=== PATIENT | female | born 1995 | race Hispanic/Latino ===

== ENCOUNTER 2022-04-23 11:25 | Emergency (ER) | payer SELFPAY ==
[2022-04-23 11:41] VITALS: BP 136/66; PULSE 66; RESP 16; TEMP 37.1; O2SAT 99
--- NOTE | 2022-04-23 12:16 | ED.GENADULT ---
HPI - General Adult General Chief complaint: Unspecified Stated complaint: pain in right breast Time Seen by Provider: 04/23/22 12:02 History of Present Illness HPI narrative: 26-year-old female without any past medical history presented with right breast pain. Per patient for the last 3 days she has been having right breast pain and redness. Yesterday she noted that redness opened up and started draining purulent discharge. She was seen by her primary care provider reported that she should be seen in the emergency department. She denied fevers, chills, chest pain, shortness of breath nausea vomiting, abdominal pain, diarrhea. Denied past medical history, past surgical history, allergies, smoking, drinking, or recreational drugs. Related Data Allergies Allergy/AdvReac Type Severity Reaction Status Date / Time No Known Allergies Allergy Uncoded 02/09/19 14:38 Review of Systems Review of Systems: Refer to HPI Exam Narrative: APPEARANCE: Alert, calm and cooperative, no acute distress, phonating, sitting comfortably during visit HEAD: atraumatic EYES: Pupils equal round an reactive to light, extra ocular movements intact, no conjunctival injection NOSE: Normal no drainage NECK: Supple, without meningismus RESPIRATORY: Lungs clear to auscultation bilaterally, no wheezes/rales/rhonchi, breathing comfortably CARDIOVASCULAR: Regular rate and rhythm, no visible jugular venous distension ABDOMINAL: Soft, nontender, nondistended, no guarding, no rebound/peritoneal signs, no costovertebral tenderness to palpation BACK: no midline tenderness to palpation, no step offs EXTREMITIES: No edema, palpable peripheral pulses, warm, well perfused, no tenderness to bilateral calves. BREAST: Right breast with 2 cm ulceration, minimal discharge draining, surrounding erythema, no fluctuance, no induration NEURO: Alert, moving all extremities symmetrically SKIN:: Warm, dry. Normal color PSYCHIATRIC: Normal affect/mood Junior Accountant: JERARDO Reynosoole Course Vital Signs Vital signs: Vital Signs Temperature 98.7 F 04/23/22 11:41 Pulse Rate 66 04/23/22 11:41 Respiratory Rate 16 04/23/22 11:41 Blood Pressure 136/66 04/23/22 11:41 Pulse Oximetry 99 04/23/22 11:41 Oxygen Delivery Room Air 04/23/22 11:41 Temperature 98.7 F 04/23/22 11:41 Pulse Rate 66 04/23/22 11:41 Respiratory Rate 16 04/23/22 11:41 Blood Pressure 136/66 04/23/22 11:41 Pulse Oximetry 99 04/23/22 11:41 Oxygen Delivery Room Air 04/23/22 11:41 Medical Decision Making MDM Narrative Medical decision making narrative: Medical Decision Making 26-year-old female with no past medical history presented with 3 days of right breast pain, notable for erythema spontaneously draining. Patient without other medical complaints, denied fevers, chills. Physical exam benign, vitals within normal limits. Impression: History and exam suggestive of breast abscess status post spontaneously draining. Dose of bactrim given here with remaining sent to her preferred pharmacy Analgesia Appropriate for discharge home with primary care follow up and referral to breast surgeon or microarray specialist for further outpatient management The patient tolerated oral intake, is alert and oriented, speaking with clear speech, ambulated with steady gait, and has remained hemodynamically stable throughout the ED visit. He has close follow up with primary care provider for referral to breast surgery/gynecology. Areas of diagnostic uncertainty discussed and strict return precautions shared with patient; encouraged to return to the emergency department if symptoms returned or worsened. The patient is safe to be discharged with follow up, provided she abide by the verbalized and written instruction, to which the patient has express understanding. Differential Diagnosis Differential Diagnosis: Differential diagnosis includes but not limited to, breast abscess vs malignancy. Possible diagnosis
[2022-04-23] MEDS: ACETAMINOPHEN 500 MG TABLET 1000 MG PO (12:32)
[2022-04-23] MEDS: SULFAMETHOXAZOLE/TRIMETHOPRIM 800/160 MG DS TABLET 2 TAB PO (12:33)
--- NOTE | 2022-04-23 12:35 | ED.GENADULT ---
HPI - General Adult General Chief complaint: Unspecified Stated complaint: pain in right breast Time Seen by Provider: 04/23/22 12:02 Related Data Allergies Allergy/AdvReac Type Severity Reaction Status Date / Time No Known Allergies Allergy Uncoded 02/09/19 14:38 Course Vital Signs Vital signs: Vital Signs Temperature 98.7 F 04/23/22 11:41 Pulse Rate 66 04/23/22 11:41 Respiratory Rate 16 04/23/22 11:41 Blood Pressure 136/66 04/23/22 11:41 Pulse Oximetry 99 04/23/22 11:41 Oxygen Delivery Room Air 04/23/22 11:41 Temperature 98.7 F 04/23/22 11:41 Pulse Rate 66 04/23/22 11:41 Respiratory Rate 16 04/23/22 11:41 Blood Pressure 136/66 04/23/22 11:41 Pulse Oximetry 99 04/23/22 11:41 Oxygen Delivery Room Air 04/23/22 11:41 Medical Decision Making Vital Signs Vital Signs: Vital Signs Temperature 98.7 F 04/23/22 11:41 Pulse Rate 66 04/23/22 11:41 Respiratory Rate 16 04/23/22 11:41 Blood Pressure 136/66 04/23/22 11:41 Pulse Oximetry 99 04/23/22 11:41 Oxygen Delivery Room Air 04/23/22 11:41 Temperature 98.7 F 04/23/22 11:41 Pulse Rate 66 04/23/22 11:41 Respiratory Rate 16 04/23/22 11:41 Blood Pressure 136/66 04/23/22 11:41 Pulse Oximetry 99 04/23/22 11:41 Oxygen Delivery Room Air 04/23/22 11:41 Discharge Plan Discharge Clinical Impression: Abscess of breast, right Patient Disposition: Home, Self-Care Condition: Stable Instructions: Antibiotic Form, Abscess (ED) Additional Instructions: As we discussed, please return to the Emergency Department or seek medical attention if you feel worsening or change of your symptoms including but not limited to worsening pain, chest pain, difficulty breathing, lightheadedness/dizziness, bleeding, or any other concerning symptoms. If you were prescribed medications, please take them as written. If any appointments were made for you, please make sure to go to them, as follow up from the Emergency Department is important. Thank you. Patient Language: Bel[place]ian Prescriptions: New sulfamethoxazole-trimethoprim [Bactrim DS] 800-160 mg tablet 1 tablet PO Q12H Qty: 28 0RF Follow-up/Referrals: UNKNOWN,DOCTOR [Primary Care Provider] - Time of Disposition: 12:25
== END 2022-04-23 12:55 | disposition home or self-care (01) ==
PROVIDERS: Emergency Provider Emergency Medicine
DX: N61.1 Abscess of the breast and nipple (principal)
CPT/HCPCS: 99283; A9270